=== PATIENT | female | born 1940 | race Caucasian/White ===

== ENCOUNTER 2017-10-06 20:40 | Emergency (ER) | payer OTHER ==
[~2017-10-06] VITALS: Ht 152.4 cm; Wt 56.7 kg
[~2017-10-06 20:40] MED LIST: ASPIRIN81 M1 PO; ATIVAN1 MG PO; COLACE100 MG PO; COQ10 PO; COUGH MED W/CODEINE; EVISTA60 MG PO; FINACEA15% TP; FLAXSEED OIL1000 MG PO; KETOCONAZOLE; MAGNESIUM PO; MULTIPLE VITAMI1 CAP PO; NEXIUM40 MG PO; OMEGA-3 FISH1200 MG PO; PRAVACHOL40 MG PO; VIBRAMYCIN100 MG PO; VITAMIN D2000 IU PO; ZETIA10 MG PO; [UNRECOGNIZED DRUG - OTHER] TP
[2017-10-06] MEDS ORDERED: DOXYCYCLINE HY100 M3 PO (21:36)
== END 2017-10-06 21:37 | disposition home or self-care (01) ==
LOC: ED 20:40
DX: S20.461A Insect bite (nonvenomous) of right back wall of thorax, initial encounter (principal); Z88.1 Allergy status to other antibiotic agents; Z88.8 Allergy status to other drugs, medicaments and biological substances; Z79.82 Long term (current) use of aspirin; Z79.899 Other long term (current) drug therapy; W57.XXXA Bitten or stung by nonvenomous insect and other nonvenomous arthropods, initial encounter; Y93.89 Activity, other specified; Y92.89 Other specified places as the place of occurrence of the external cause; Y99.8 Other external cause status